=== PATIENT | male | born 1955 | race Two or more races ===

== ENCOUNTER 2020-04-16 23:01 | Emergency (ER) | payer SELFPAY ==
[~2020-04-16] VITALS: Ht 167.6 cm; Wt 72.6 kg
[2020-04-16 22:57] VITALS: BP 162/100
[2020-04-16] MEDS ORDERED: IBUPROFEN600 M1 ORAL (23:14)
--- NOTE | 2020-04-16 23:15 | Emergency Room Report ---
History of Present Illness General Chief Complaint: Lower Extremity Injury Source: Patient, EMS Present Illness HPI This is a 64-year-old male with no past medical history. He presents with chief complaint of left knee pain. This is a chronic problem but flareup. He is it hurts when he walks. Pain is throbbing in nature. He has been to several hospital for this. Most recently the [facility]. He said he is on his way to the [place] but when the pain started again. Denies any trauma. No fever chills. No other complaint. 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 Patient History Past Medical History: see triage record, old chart reviewed Past Surgical History: other Pertinent Family History: none Social History: Denies: smoking Immunizations: other Reviewed Nursing Documentation: PMH: Agreed; PSxH: Agreed Review of Systems Eye: Denies: eye pain, blurred vision ENT: Denies: ear pain, nose congestion, throat swelling Respiratory: Denies: cough, shortness of breath Cardiovascular: Denies: chest pain, palpitations Gastrointestinal: Denies: abdominal pain, diarrhea, nausea, vomiting Musculoskeletal: Reports: joint pain; Denies: back pain Skin: Denies: rash Neurological: Denies: headache, numbness Endocrine: Denies: increased thirst, increased urine Hematologic/Lymphatic: Denies: easy bruising All Other Systems: negative except mentioned in HPI Physical Exam Vital Signs Date Time Temp Pulse Resp B/P (MAP) Pulse Ox O2 Delivery O2 Flow Rate FiO2 04/16/20 22:57 98.4 107 16 162/100 (120) 98 Room Air Vitals with high blood pressure Sp02 EP Interpretation: reviewed, normal General Appearance: well appearing, no apparent distress, alert Head: normocephalic, atraumatic Eyes: bilateral eye PERRL, bilateral eye EOMI ENT: hearing grossly normal, normal pharynx Neck: full range of motion, supple, no meningismus Respiratory: chest non-tender, lungs clear, normal breath sounds Cardiovascular #1: regular rate, rhythm, no murmur Gastrointestinal: normal bowel sounds, non tender, no mass, no organomegaly, no bruit, non-distended Musculoskeletal: back normal, normal range of motion, gait/station normal, other - Left knee: There is arthritic changes with increased bony formation. No effusion. No deformity. No warmth or redness. Psychiatric: mood/affect normal Medical Decision Making Diagnostic Impression: Primary Impression: Osteoarthritis of left knee Qualified Codes: M17.12 - Unilateral primary osteoarthritis, left knee ER Course Patient presents with left knee pain. There is no evidence of any septic joint. There is no evidence of any gout. Most likely osteoarthritis with degenerative changes. He may need knee replacement surgery. This can be done as an outpatient however. Last Vital Signs Date Time Temp Pulse Resp B/P (MAP) Pulse Ox O2 Delivery O2 Flow Rate FiO2 04/16/20 22:57 98.4 107 16 162/100 (120) 98 Room Air Status: improved Disposition: HOME, SELF-CARE Condition: Stable Scripts Ibuprofen* (MOTRIN*) 600 Mg Tablet 600 MG ORAL Q6H PRN for For Pain, #30 TAB 0 Refills Prov: Nirmal Maciel MD 04/16/20 Additional Instructions: [facility] as needed. Return if symptoms worsen. Nirmal Maciel MD Apr 16, 2020 23:15
--- NOTE | 2020-04-16 23:23 | NUR ---
Patient was brought in the ED by [facility], patient complains of left knee pain. Twisted his left knee a month ago.
--- NOTE | 2020-04-16 23:27 | NUR ---
ER DISCHARGE NOTE: Patient is cleared to be discharged per ERMD, pt is aox4, on room air, with stable vital signs. pt was given dc and prescription instructions, pt was able to verbalize understanding, pt id band removed. pt is able to ambulate with steady gait. pt took all belongings.
== END 2020-04-16 23:28 | disposition home or self-care (01) ==
LOC: EDBD 23:01 → EMR 23:12
DX: M17.12 Unilateral primary osteoarthritis, left knee (principal)
CPT/HCPCS: 99282